=== PATIENT | male | born 1940 | race Caucasian/White ===

== ENCOUNTER 2016-12-31 14:11 | Emergency (ER) | payer MEDICARE, BC ==
[2016-12-31] MEDS ORDERED: SODIUM CHLORIDE 0.9% 500 ML IV ONE (15:45)
== END 2016-12-31 17:41 | disposition home or self-care (01) ==
DX: R19.7 Diarrhea, unspecified (principal); R42 Dizziness and giddiness; I50.9 Heart failure, unspecified; E78.00 Pure hypercholesterolemia, unspecified; I25.2 Old myocardial infarction; E11.9 Type 2 diabetes mellitus without complications; Z79.4 Long term (current) use of insulin; K21.9 Gastro-esophageal reflux disease without esophagitis; M19.90 Unspecified osteoarthritis, unspecified site

== ENCOUNTER 2018-08-26 10:36 | Outpatient (CLI) | payer MEDICARE, BC ==
[2018-08-26 11:23] LABS: CALCIUM 8.8 mg/dL (8.5-10.3); CREATININE 1.9 mg/dL (0.6-1.2)
== END 2018-08-26 10:37 | disposition home or self-care (01) ==
LOC: LAB 10:36
PROVIDERS: ATTEND Internal Medicine Cardiovascular Disease
DX: I11.0 Hypertensive heart disease with heart failure (principal); I50.9 Heart failure, unspecified
CPT/HCPCS: 36415; 80048; 83880

== ENCOUNTER 2018-09-03 09:09 | Outpatient (CLI) | payer MEDICARE, BC | END 2018-09-03 09:10 | disposition short-term general hospital (02) | LOC: EMS 09:09 | PROVIDERS: ATTEND Surgery | DX: R06.02 Shortness of breath (principal); R10.9 Unspecified abdominal pain; M54.9 Dorsalgia, unspecified; R60.9 Edema, unspecified | CPT/HCPCS: A0425; A0427 ==